=== PATIENT | female | born 1945 | race Two or more races ===

== ENCOUNTER 2021-07-18 16:04 | Outpatient (REF) | payer MEDICARE, MEDICAID, SELFPAY | END 2021-07-18 16:05 | disposition home or self-care (01) | LOC: HO.SCI 16:04 | PROVIDERS: Visit Provider Nurse Practitioner Primary Care | DX: Z13.89 Encounter for screening for other disorder (principal) ==

== ENCOUNTER 2021-08-17 08:38 | Outpatient (REF) | payer MEDICARE, MEDICAID, SELFPAY ==
--- NOTE | ~2021-08-17 | MM_ITS ---
EXAMINATION: BONE DENSITOMETRY CLINICAL INDICATION: Osteoporosis. COMPARISON: This is the patient's baseline examination. TECHNIQUE: Using a Femasys DXA System (software version: 13.1) manufactured by [employer], dual-energy x-ray absorptiometry was performed of the lumbar spine and left hip. The images are of good technical quality. Summary results are attached. FINDINGS: AP SPINE L1-L4 (excluding L3): The data of L1-L4 has been changed to exclude the L3 vertebral body, because degenerative sclerosis at this level may cause overestimation of lumbar spine density. BMD 0.958 g/cm2, Z-score 0.0, T-score -1.8, osteopenia. LEFT FEMUR, NECK: BMD 0.679 g/cm2, Z-score -0.6, T-score -2.6, osteoporosis. LEFT FEMUR, TOTAL: BMD 0.664 g/cm2, Z-score -0.9, T-score -2.7, osteoporosis. IDENTIFIED RISK FACTORS: Height loss, history of fracture (adult), menopause. HISTORY OF FRACTURE: Hip. MEDICATIONS: Multivitamin. MM/XR DEXA axial skeleton IMPRESSION: 1. DIAGNOSIS: Severe osteoporosis based on the lowest T-score value of -2.7 in the total femur and fracture history applying World Health Organization criteria. 2. 10-YEAR FRACTURE RISK PREDICTION, FRAX: Major osteoporotic fracture (clinical spine, forearm, hip or shoulder) 16.9%. Hip fracture 5.3%. 3. Treatment Recommendations: NOF guidelines recommend consideration for treatment in postmenopausal women and men age 50 and older presenting with the following: -A hip or vertebral (clinical or morphometric) fracture. -T-score less than or equal to -2.5 at the femoral neck or spine after appropriate evaluation to exclude secondary causes. -Low bone mass at the hip or spine and a 10-year fracture probability by FRAX of greater than or equal to 3% for hip fracture or greater than or equal to 20% for major osteoporotic fracture based on the [place] adapted WHO algorithm. 4. Other Recommendations: All treatment decisions require clinical judgment and consideration of individual patient factors, including patient preferences, comorbidities, previous drug use, risk factors not captured in the FRAX model (e.g. frailty, falls, vitamin D deficiency, increased bone turnover, interval significant decline in bone density) and possible under or overestimation of fracture risk by FRAX. Additional medical evaluation for secondary cause of low bone mineral density may be appropriate. FUTURE SCAN RECOMMENDATION: People with diagnosed cases of osteoporosis or at high risk for fracture should have regular bone mineral density tests. For patients eligible for Medicare, routine testing is allowed once every 2 years. The testing frequency can be increased to one year for patients who have rapidly progressing disease, those who are receiving or discontinuing medical therapy to restore bone mass, or have additional risk factors.
== END 2021-08-17 08:39 | disposition home or self-care (01) ==
LOC: HO.MAMMO 08:38
PROVIDERS: PCP Nurse Practitioner Primary Care; Visit Provider Nurse Practitioner Primary Care
DX: Z13.820 Encounter for screening for osteoporosis (principal); M81.0 Age-related osteoporosis without current pathological fracture; Z78.0 Asymptomatic menopausal state; Z87.81 Personal history of (healed) traumatic fracture
CPT/HCPCS: 77080

== ENCOUNTER 2021-09-08 | Outpatient (REF) | payer MEDICARE, MEDICAID, SELFPAY ==
--- NOTE | ~2021-09-08 | CT_ITS ---
EXAMINATION: CT CHEST SCREENING CLINICAL INFORMATION: Smoking history COMPARISON: None. TECHNIQUE: Multidetector volumetric CT imaging of the chest is performed without contrast using low dose technique. Additional 2D coronal and sagittal reformatted images and axial 3D maximum intensity projection (MIP) images are generated on the CT workstation. This CT examination was performed using dose optimization techniques as appropriate, variously including the following: *Automated exposure control *Adjustment of mA and/or kV according to patient size (this includes techniques or standardized protocols for targeted exams where dose is matched to indication/reason for exam; i.e. extremities or head) *Use of iterative reconstruction technique DLP: 221 mGy-cm FINDINGS: LUNGS: There is evidence of emphysema. There is a 3 mm calcified right upper lobe nodule axial D8 series 5. There is a 2 x 5 mm nodular density in the right lower lobe axial image 264 series 5 probably representing scarring or subsegmental atelectasis. There is a 2 mm calcified right middle lobe nodule axial image 342 series 5. There is a 5 mm calcified left lower lobe nodule axial image 386 series 5. There is a 3 mm calcified right lower lobe nodule axial image 411 series 5. There is subsegmental atelectasis seen at the lung bases in both lower lobes. MEDIASTINUM: The thoracic aorta is tortuous. There is coronary artery and aortic calcification. The thoracic aorta is normal in caliber. The heart does not appear enlarged. There is no pericardial effusion. There are no enlarged hilar or mediastinal lymph nodes. The visualized thyroid gland is unremarkable. PLEURA: There is no pleural effusion. No pleural mass or thickening. AXILLA: No lymphadenopathy. UPPER ABDOMEN: Unremarkable OSSEOUS STRUCTURES: There are degenerative changes of the spine. CT/CT lung screening IMPRESSION: Emphysema. Small calcified pulmonary nodules probably representing calcified granulomas. Atherosclerotic disease. ASSESSMENT: Lung-RADS category 2: Benign RECOMMENDATION: Annual low-dose chest CT follow-up recommended.
== END 2021-09-08 00:01 | disposition home or self-care (01) ==
LOC: HO.CT
PROVIDERS: PCP Nurse Practitioner Primary Care; Visit Provider Physician Assistant Medical
DX: Z12.2 Encounter for screening for malignant neoplasm of respiratory organs (principal); Z87.891 Personal history of nicotine dependence
CPT/HCPCS: 71271; G0296

== ENCOUNTER 2025-06-24 08:29 | Outpatient (REF) | payer MEDICARE, MEDICAID, SELFPAY ==
--- OUTSIDE RECORDS SUMMARY | 2025-06-24 08:38 | XMS_ITS | Encounter Summary ---
Author Organization [employer] Address [address] [place] [address] [address] [place] [address] Care Team Providers Care Exchange Clerk Name Role Phone Nathalie Armendariz Primary Care Provider [phone] Reason for Visit * Reason Comments Med Refill Encounter Details Date Type Department Care Team (Late st Contact Info) Description 12/07/2023 Refill [facility] [address] [place] [address] Nathalie Armendariz ANP [address] [place] [phone] Primary insomnia Social History Tobacco Use Types Packs/Day Years Used Date Smoking Tobacco: Never Passive Smoke Exposure: Never Smokeless Tobacco: Never Alcohol Use Standard Drinks/Week Comments Never 0 (1 standard drink = 0.6 oz pur e alcohol) Comments Unknown Sex and Gender Information Value Date Recorded Sex Assigned at Female 09/24/2022 10:26 AM EDT Legal Sex Female 10:26 AM EDT Gender Identity Female 09/24/2022 10:26 AM EDT Sexual Orientation Straight 09/24/2022 10 :26 AM EDT documented as of this encounter Plan of Treatment Upcoming Encounters Date Type Department Care Team (Late st Contact Info) Description 07/05/2025 9:30 AM EDT Clinical Support [address] [phone] 09/02/2025 10:00 AM EDT Office Visit [facility] [address] [place] [phone] Nathalie Armendariz ANP [address] [place] [address] documented as of this encounter Visit Diagnoses Diagnosis Primary insomnia Persistent disorder of initiating or maintaining sleep documented in this encounter Care Teams Exchange Clerk Relationship Specialty Start Date End Date Nathalie Armendariz ANP [address] [place] [address] PCP - General Family Medicine 07/18/21 [employer] 12/24/22 documented as of this encounter
[2025-06-24 11:18] LABS: Hematocrit 40.8 % (37.0-47.0); Hemoglobin 13.2 g/dl (12.0-16.0); Imm Gran Abs Auto 0.04 X10*3/uL (0.00-0.03); Imm Gran Pct Auto 0.8 % (0.0-0.4); Lymphocytes Absolute Auto 1.8 X10*3/uL (1.2-4.9); MANUAL DIFF FLAG SCAN; Mean Corpuscular HGB Conc 32.4 g/dl (31.0-35.0); Mean Corpuscular Hemoglobin 28.9 pg (27.0-33.0); Mean Corpuscular Volume 89.3 fL (80.0-98.0); NRBC Abs Auto 0.000 X10*3/uL (0.0-0.012); NRBC Pct Auto 0.0 /100WBC (0.0-0.2); Platelet Count 258 X10*3/uL (160-400); Red Blood Count 4.57 X10*6/uL (4.20-5.50); SCAN SMEAR FLAG 1; White Blood Count 5.3 X10*3/uL (4.8-10.8)
[2025-06-24 11:30] LABS: Hemoglobin A1C 134.3696 umol/L; Total Hemoglobin (HGBA1C) 3438.6534 umol/L
[2025-06-24 11:32] LABS: Anion Gap 14 (12-20); Blood Urea Nitrogen 13 mg/dL (9-16); Calcium 9.2 mg/dL (8.4-10.2); Carbon Dioxide 23 mmol/L (22-29); Chloride 109 mmol/L (96-108); Estimated Glomerular Filt Rate > 60; Potassium 3.8 mmol/L (3.3-5.1); Sodium 142 mmol/L (135-145)
[2025-06-24 11:57] LABS: Vitamin B12 208 pg/mL (200-900)
== END 2025-06-24 08:30 | disposition home or self-care (01) ==
LOC: HO.HHCL 08:29
PROVIDERS: PCP Nurse Practitioner Primary Care; Visit Provider Nurse Practitioner Primary Care
DX: R63.4 Abnormal weight loss (principal); R73.09 Other abnormal glucose; R63.0 Anorexia; E78.5 Hyperlipidemia, unspecified
CPT/HCPCS: 36415; 80048; 82607; 83036; 84443; 85025

== ENCOUNTER 2025-11-12 10:12 | Outpatient (REF) | payer MEDICARE, MEDICAID, SELFPAY ==
--- NOTE | ~2025-11-12 | MM_ITS ---
EXAMINATION: DXA BONE DENSITY AXIAL HISTORY: osteoporosis, on alendronate TECHNIQUE: [employer] Dual energy absorptiometry (DEXA) of the lumbar spine, total left hip, and femoral neck was performed. COMPARISON: Comparison is made with the prior examination dated 08/17/2021. FINDINGS: The bone mineral density of the lumbar spine is 0.968 g/cm2, corresponding to a T-score of -1.8, and a Z-score of 0.1. This is indicative of osteopenia. This represents a BMD change of -5.4% compared to the prior exam. This is statistically significant. The bone mineral density of the left total hip is 0.632 g/cm2, corresponding to a T-score of -3.0, and a Z-score of -0.9. This is indicative of osteoporosis. This represents a BMD change of -4.8% compared to the prior exam. This is not statistically significant. The bone mineral density of the left femoral neck is 0.821 g/cm2, corresponding to a T-score of -1.6, and a Z-score of 0.7. This is indicative of osteopenia. This represents a BMD change of 20.9% compared to the prior exam. FRACTURE RISK: The FRAX index suggests a ten year probability of major osteoporotic fracture of 12.3%, and of hip fracture 2.8%. MM/XR DEXA axial skeleton IMPRESSION: Based on bone mineral density, and according to World Health Organization (WHO) criteria, the diagnosis is consistent with osteoporosis. Statistically, 68% of repeat scans fall within 1 SD (+/- 0.010 g/cm2 for AP spine L1-L4) and 1 SD (+/- 0.012 g/cm2 for femur total) FRAX is a trademark of the [employer]'s [place] [employer] Met[employer], a World Health Organization (WHO) Collaborating Center. Electronically signed by: Saad Fierro MD 11/12/2025 11:44 AM [facility]
--- OUTSIDE RECORDS SUMMARY | 2025-11-12 11:32 | XMS_ITS | Clinical Summary ---
Author Organization [employer] Address [address] [place] [address] 7[address] [place] [address] Care Team Providers Care Knitter Machine Name Role Phone Nathalie Armendariz OMAR Primary Care Provider [phone] Allergies No known active allergies Medications Diclofenac Sodium 1 % gel APLIQUE AL KYLAH AFECTADA LARA VECES AL D A CUANDO SEA NECESARIO PARA EL DOLOR 2 Active zoster vaccine-recombina nt adjuvanted (Shingrix) 50 MCG/0.5ML vaccine Inject 0.5 mL into the shoulder, thigh, or buttocks. 9 Active Blood Pressure Monitoring (Omron 3 Series BP Monitor) device TAKE BLOOD PRESSURE SEATED IN CHAIR WITH FEET ON FLOOR 2 Active cholecalciferol (Vitamin D-3) 50 MCG (1999 UT) capsule Take 1 capsule by mouth once daily 2 Active melatonin 3 MG tablet TAKE 1 TABLET BY MOUTH 30 TO 60 MINUTES BEFORE BEDTIME 90 tablet 3 3 Active alendronate (Fosamax) 70 MG tablet take 1 tablet once a week with 6 to 8 oz of water 30 min before first food of day. do not lie down for 30 minutes 12 tablet 1 4 Active Aspirin Low Dose 81 MG chewable tablet CHEW 1 TABLET BY MOUTH EVERY DAY 90 tablet 1 4 Active atorvastatin (Lipitor) 40 MG tabletIndications :Dyslipidemia Take 1 tablet (40 mg) by mouth Once per day. 90 tablet 1 5 Active Calcium Carb-Cholecalcife rol (Calcium + Vitamin D3) 600-5 MG-MCG tabletIndications :Osteoporosis without current pathological fracture, unspecified osteoporosis type Take 1 tablet by mouth 2 times daily. TAKE 1 TABLET BY MOUTH TWICE DAILY 180 tablet 3 Active venlafaxine (Effexor) 50 MG tabletIndications :Depressive disorder Take 1 tablet (50 mg) by mouth Once per day. 90 tablet 1 Active cyanocobalamin (Vitamin B-12) 1000 MCG/ML injectionIndicati ons:B12 deficiency 1000mcg IM 2 times per week for 1 week, then once weekly for 4 weeks 6 mL 11/03/2025 12:31 PM EST Active Hospital, Clinic, or Other Facility Administered Medication Ordered Dose Route Frequency Start Date End Date Status cyanocobalamin (Vitamin B-12) injection 1,000 mcgIndications:B12 deficiency 1000 mcg IM Weekly 11/12/2025 12/10/2025 Active cyanocobalamin (Vitamin B-12) injection 1,000 mcgIndications:B12 deficiency 1000 mcg IM Once per day on Saturday11/04/2025 11/05/2025 Ended Active Problems Problem Noted Date Diagnosed Date Memory loss 07/12/2025 Depressive disorder 04/18/2022 Minimal cognitive impairment 04/18/2022 Osteoporosis 07/18/2021 Dyslipidemia 07/18/2021 Encounters Date Type Department Care Team Description 11/05/2025 10:30 AM EST Nurse Only [facility] [address] Gretel Stovall RN B12 deficiency 11/05/2025 Travel 11/05/2025 Telephone [facility] [address] [place] [address] Nathalie Armendariz ANP vna referral 11/04/2025 1:30 PM EST Nurse Only [facility] [address] [place] [address] Cande Adkins, BENSON B12 deficiency 11/04/2025 Telephone [facility] [address] [place] [address] Nathalie Armendariz ANP Error (VOID this visit) 11/04/2025 Telephone [facility] [address] [place] [address] Nathalie Armendariz ANP Medication Question 11/04/2025 Travel 11/01/2025 Telephone [facility] [address] [place] [address] Nathalie Armendariz ANP ER Follow-up 11/01/2025 Patient Outreach [facility] [address] [place] [address] Nathalie Armendariz ANP Transition Of Care (Tcm) (HDF unscheduled ) 10/25/2025 Telephone [facility] [address] [place] [address] Nathalie Armendariz ANP Appointment Request 10/19/2025 Telephone [facility] [address] [place] [address] Nathalie Armendariz ANP Appointment Request 10/08/2025 Telephone [facility] [address] [place] [address] Crystal Alvarez RN Results 10/07/2025 Orders Only [facility] [address] [place] [address] Nathalie Armendariz ANP 09/20/2025 Refill [facility] [address] [place] [address] Nathalie Armendariz ANP Depressive disorder 09/15/2025 Refill [facility] [address] [place] [address] Nathalie Armendariz ANP Dyslipidemia 09/02/2025 Telephone [facility] [address] [place] [address] Nathalie Armendariz ANP No Show 08/31/2025 Telephone [facility] [address] [place] [address] Nathalie Armendariz ANP chart prep from Last 3 Months Immunizations Immunization Administration Dates Next Due Influenza High-dose Quadriva lent Preservative Free 08/29/2021 Influenza Injectable Quadriv alant Preservative Free IIV4 MDCK 08/19/2020 Influenza injectable quadriv alent preservative free 01/05/2020,12/12/2018,10/15/2016,10/06,10/25/2014,08/04/2013,08/21/2012 ,02/22/2011 Influenza, IIV3, injectable 01/05/2020,0 12/12/2018,10/15/2016,10/06,10/25/2014,08/04/2013,08/21/2012 ,02/22/2011 Pneumococcal Conjugate PCV 13 04/09/2016 Pneumococcal Conjugate PCV 20 06/16/2025 Pneumococcal Polysaccharide PPSV23 08/05/2006 Td (adult), unspecified 08/05/2006 Tdap 08/29/2021,04/26/2017 Zoster, Recombinant 06/23/2019 Zoster, live 06/10/2014 Social History Tobacco Use Types Packs/Day Years Used Date Smoking Tobacco: Never Passive Smoke Exposure: Never Smokeless Tobacco: Never Tobacco Cessation:Counseling Given: Not Answered Alcohol Use Standard Drinks/Week Comments Never 0 (1 standard drink = 0.6 oz pur e alcohol) Depression Answer Date Recorded Patient Health Questionnaire-9 Score 0 06/16/2025 Patient Health Questionnaire-9 Score 0 06/16/2025 Last PHQ-9: Questionnaire Data Not on file 0 06/16/2025 Housing Stability Answer Date Recorded What is your housing situation today? I have ryan barbour 06/16/[address] you li ve. Do you have problems with any of the following? None of the above 06/16/2025 Food Insecurity Answer Date Recorded Within the past 12 months, y ou worried that your food would run out before you got money to buy more: Never True 06/16/2025 Within the past 12 months,th e food you bought just didn't last and you didn't have enough money to get more: Never True Transportation Answer Date Recorded In the past 12 months, has l ack of transportation kept you from medical appts, meetings, work or from getting things needed for daily living? No 06/16/2025 Utilities Answer Date Recorded In the past 12 months, has t he electric, gas, oil or water company threatened to shut off services in your home? No 06/16/2025 Depression Answer Date Recorded Patient Health Questionnaire-2 Score 0 06/16/2025 Internet Access Answer Date Recorded Internet Access Q1 Yes 06/16/2025 Internet Access Q2 Not on file 06/16/2025 Comments Unknown Sex and Gender Information Value Date Recorded Sex Assigned at Female 09/24/2022 10:26 AM EDT Legal Sex Female 10:26 AM EDT Gender Identity Female 09/24/2022 10:26 AM EDT Sexual Orientation Straight 09/24/2022 10 :26 AM EDT Last Filed Vital Signs Vital Sign Reading Time Taken Comments Blood Pressure 163/90 06/16/2025 3:26 PM EDT Pulse 67 06/16/2025 3:26 PM EDT Temperature - - Respiratory Rate 16 11/27/2022 10:27 AM EST Oxygen Saturation - - Inhaled Oxygen Concentration - - Weight 57.6 kg (127 lb) 06/16/2025 3:26 PM EDT Height 152.4 cm (5') 11/27/2022 10:27 AM EST Body Mass Index 24.8 11/27/2022 10:27 AM EST Plan of Treatment Upcoming Encounters Date Type Department Care Team (Late st Contact Info) Description 11/15/2025 10:30 AM EST Nurse Only [facility] [address] [place] [address] [phone] 12/09/2025 1:30 PM EST Office Visit [facility] [address] [place] [address] Nathalie Armendariz ANP [address] [place] [address] Health Maintenance Due Date Last Done Comments RSV Patients and Patients Aged 60 years or older (1 - 1-dose 75+ series) 2018 Zoster Vaccines (3 of 3) 08/18/2019 06/23/2019, 05/25 COVID-19 Vaccine ( season) 2025 08/27/2021, 01/30/2021, 01/09/2021 Influenza Vaccine (#1) 2025 , 08/19/2020, 01/05/2020, Additional history exists Alcohol/Substance Use Screening 06/16/2026 06/16/2025 Depression Screening 06/16/2026 06/16/2025, 06/16/20 25 SDOH Screening 06/16/2026 06/16/2025 Tobacco Screening 06/16/2026 06/16/2025 Diabetes: Hemoglobin A1C 06/24/2026 06/24/2025, 11/0 11/2020 DTaP/Tdap/Td Vaccines (3 - Td or Tdap) 08/29/2031 08/29/2021, 04/26/2017, 08/05/2006 Pneumococcal Vaccine: 50+ Years Completed 06/16/2025, 04/09/2016, 08/05/2006 HIB Vaccines Aged Out No longer eligi ble based on patient's age to complete this topic HPV Vaccines Aged Out No longer eligi ble based on patient's age to complete this topic Hepatitis A Vaccines Aged Out No long er eligible based on patient's age to complete this topic Hepatitis B Vaccines Aged Out No long er eligible based on patient's age to complete this topic IPV Vaccines Aged Out No longer eligi ble based on patient's age to complete this topic Meningococcal B Vaccine Aged Out No l onger eligible based on patient's age to complete this topic Meningococcal Vaccine Aged Out No alexander harvinder eligible based on patient's age to complete this topic RSV under 20 months Aged Out No longe r eligible based on patient's age to complete this topic Rotavirus Vaccines Aged Out No longer eligible based on patient's age to complete this topic Procedures Procedure Name Priority Date/Time Associated Diagnosis Comments HEMOGLOBIN A1C Routine 06/24/2025 8:40 AM EDT Elevated hemoglobin A1c from Last 3 Months or Most Recently Relevant to Health Maintenance Results * Hemoglobin A1c (06/24/2025 8:40 AM EDT) Hemoglobin A1c 5.7 <6.0 % [facility] Comment:Hemoglobin A1C Refer ence Range Adults: 4.8 - 6.0 % Non diabetic: < 6.0 % Goal: < 7.0 %Additional Action Suggested: > 8.0 %Note: Hemoglobin A1c results are invalid for patients with abnormal amounts of HbF. Blood transfusions may impact the HbA1c concentration in the patient sample. Estimated Average Glucose 117 mg/dL [facility] Comment:eAG = Estimated ave rage glucose which is %A1C expressed asaverage glucose, using the formula of the M2Y-OztoxpxLfasqoz Glucose study (ADAG), Diabetes Care, Vol.31,#8,Jun. 2007 Blood Venous blood specimen / Unknown 06/24/2025 8:40 AM EDT 06/24/2025 10:54 AM EDT Nathalie [facility] BLOOD ORDERABLES Final Resul t [facility] [address] [place] [address] [phone] from Last 3 Months or Most Recently Relevant to Health Maintenance Insurance [facility] STANDARD MEDICARE Advance Directives Documents on File Type Date Recorded Patient Community Development Director Expl anation Advance Directives and Living Will 06/17/2025 Health Care Proxy 06/16/25 Advance Directives and Living Will 11/27/2022 HEALTH CARE PROXY Power of Input Output Clerk 11/27/2022 HEALTH CAR E PROXY Care Teams Knitter Machine Relationship Specialty Start Date End Date Nathalie Armendariz ANP [address] [place] [phone] PCP - General Family Medicine 07/18/21 [employer] 12/24/22
--- OUTSIDE RECORDS SUMMARY | 2025-11-12 11:32 | XMS_ITS | Encounter Summary ---
Author Organization [employer] Address [address] [facility] 7t [place] [address] Care Team Providers Care Administrative Support Assoc Name Role Phone Nathalie Armendariz Primary Care Provider [phone] Reason for Visit * Reason Comments Med Refill Encounter Details Date Type Department Care Team (Late st Contact Info) Description 09/15/2025 Refill [facility] [address] [place], [place] [phone] Nathalie Armendariz ANP [address] [place], [place] [phone] Dyslipidemia Social History Tobacco Use Types Packs/Day Years [...] Upcoming Encounters Date Type Department Care Team ([facility] st Contact Info) Description 11/15/2025 10:30 AM EST Nurse Only [address] [address] 12/09/2025 1:30 PM EST Office Visit [address] [address] Nathalie Armendariz ANP [address] [place] [phone] documented as of this encounter Visit Diagnoses Diagnosis Dyslipidemia Other and unspecified hyperlipidemia documented in this encounter Additional Health Concerns Assessment Noted Time PHQ-9 Depression Total Score: 0 06/16/20 25 3:28 PM EDT documented as of this encounter Care Teams Administrative Support Assoc Relationship Specialty Start Date End Date Nathalie Armendariz ANP [address] [place] [phone] PCP - General Family Medicine 07/18/21 [employer] 12/24/22 documented as of this encounter
--- OUTSIDE RECORDS SUMMARY | 2025-11-12 11:32 | XMS_ITS | Encounter Summary ---
Author Organization [employer] Address [address] [place] [address] Care Team Providers Care Mobile Security Architect Name Role Phone Nathalie Armendariz Primary Care Provider [phone] Reason for Visit * Reason Comments Med Refill Encounter Details Date Type Department Care Team (Late st Contact Info) Description 12/07/2023 Refill [facility] [address] [place] [phone] Nathalie Armendariz ANP [address] [place] [phone] Primary insomnia Social History Tobacco Use Types [...] Description 11/15/2025 10:30 AM EST Nurse Only [address] [phone] 12/09/2025 1:30 PM EST Office Visit [address] [address] Nathalie Armendariz ANP [address] [place] [phone] documented as of this encounter Visit Diagnoses Diagnosis Primary insomnia Persistent disorder of initiating or maintaining sleep documented in this encounter Care Teams Mobile Security Architect Relationship Specialty Start Date End Date Nathalie Armendariz ANP [address] [place] [address] PCP - General Family Medicine 07/18/21 [employer] 12/24/22 documented as of this encounter
--- OUTSIDE RECORDS SUMMARY | 2025-11-12 11:32 | XMS_ITS | Encounter Summary ---
Author Organization [employer] Address [address] [facility] [address]t [place] [address] Care Team Providers Care Track Greaser Name Role Phone Nathalie Armendariz Primary Care Provider [phone] Reason for Visit * Reason Comments Med Refill Encounter Details Date Type Department Care Team (Late st Contact Info) Description 09/20/2025 Refill [facility] [address] [place], [place] [phone] Nathalie Armendariz ANP [address] [place], [place] [phone] Depressive disorder Social History Tobacco Use Types Packs/Day Years [...] Description 11/15/2025 10:30 AM EST Nurse Only [address] [address] 12/09/2025 1:30 PM EST Office Visit [address] [address] Nathalie Armendariz ANP [address] [place] [phone] documented as of this encounter Visit Diagnoses Diagnosis Depressive disorder Depressive disorder, not elsewhere classified documented in this encounter Additional Health Concerns Assessment Noted Time PHQ-9 Depression Total Score: 0 06/16/20 25 3:28 PM EDT documented as of this encounter Care Teams Track Greaser Relationship Specialty Start Date End Date Nathalie Armendariz ANP [address] [place] [phone] PCP - General Family Medicine 07/18/21 [employer] 12/24/22 documented as of this encounter
--- OUTSIDE RECORDS SUMMARY | 2025-11-12 11:32 | XMS_ITS | Encounter Summary ---
Author Organization [employer] Address [address] [place] [address] [address] [place] [address] Care Team Providers Care Ethnic Studies Professor Name Role Phone Nathalie Armendariz Primary Care Provider [phone] Encounter Details Date Type Department Care Team (Late st Contact Info) Description 05/29/[address] [phone] Nathalie Armendariz ANP [address] [place] [address] [phone] Social History Tobacco Use Types Packs/Day Years [...] Description 11/15/2025 10:30 AM EST Nurse Only [address] [phone] 12/09/2025 1:30 PM EST Office Visit [address] [phone] Nathalie Armendariz ANP [address] [place] [address] [phone] documented as of this encounter Visit Diagnoses Not on filedocumented in this encounter Care Teams Ethnic Studies Professor Relationship Specialty Start Date End Date Nathalie Armendariz ANP [address] [place] [address] PCP - General Family Medicine 07/18/21 [employer] 12/24/22 documented as of this encounter
--- OUTSIDE RECORDS SUMMARY | 2025-11-12 11:32 | XMS_ITS | Encounter Summary ---
Author Organization [employer] Address [address] [facility] [address] [place] [address] Care Team Providers Care Senior Net Programmer Name Role Phone Nathalie Armendariz Primary Care Provider [phone] Encounter Details Date Type Department Care Team (Late Contact Info) Description 10/29/2022 Orders Only [facility] MED & PEDS [address] [place], [place] [phone] Nathalie Armendariz ANP [address] [place] [address] Chronic depression (Primary Dx); MCI (mild cognitive impairment) Social History Tobacco Use Types Packs/Day Years Used Date Smoking Tobacco: Never Assessed Comments Unknown Sex and Gender Information Value Date Recorded Sex Assigned at Female 09/24/2022 10:26 AM EDT Legal Sex Female 10:26 AM EDT Gender Identity Female 09/24/2022 10:26 AM EDT Sexual Orientation Straight 09/24/2022 10 :26 AM EDT documented as of this encounter Plan of Treatment Upcoming Encounters Date Type Department Care Team (Late Contact Info) Description 11/15/2025 10:30 AM EST Nurse Only [facility] MEDICINE [address] [place] [address] [phone] 12/09/2025 1:30 PM EST Office Visit [address] [address] Nathalie Armendariz, ANP [address] [place] [address] documented as of this encounter Visit Diagnoses Diagnosis Chronic depression- Primary MCI (mild cognitive impairment) Mild cognitive impairment, so stated documented in this encounter Care Teams Senior Net Programmer Relationship Specialty Start Date End Date Nathalie Armendariz ANP [address] [place] [address] PCP - General Family Medicine 07/18/21 [employer] 12/24/22 documented as of this encounter
--- OUTSIDE RECORDS SUMMARY | 2025-11-12 11:32 | XMS_ITS | Encounter Summary ---
Author Organization [employer] Address [address] [facility] [address] [place] [address] Care Team Providers Care Utilization Management Rn Name Role Phone Nathalie Armendariz Primary Care Provider [phone] Reason for Visit * Reason Onset Date Comments vna referral 11/05/2025 Encounter Details Date Type Department Care Team ([facility] st Contact Info) Description 11/05/2025 Telephone [facility] MEDICINE [address] [place], [place] [phone] Nathalie Armendariz ANP [address] [place], [place] [phone] vna referral Social History Tobacco Use Types Packs/Day Years [...] AM EDT documented as of this encounter Miscellaneous Notes * Telephone Encounter - Cande Adkins RN - 11/09/2025 4:33 PM EST Pending review by [facility]. * Telephone Encounter - Cande Adkins RN - 11/05/2025 9:13 AM EST Generated VNA referral and placed on PCP desk for signature. * Telephone Encounter - Cande Adkins RN - 11/05/2025 9:08 AM EST ----- Message from Nurse Cande Goodwin sent at 11/04/2025 4:35 PM EST ----- ----- Message ----- From: OMAR Geren Sent: 11/04/2025 3:51 PM EST To: Cande Adkins RN Yes! VNA would be great ----- Message ----- From: Cande Adkins RN Sent: 11/04/2025 2:06 PM EST To: OMAR Green Pt's daughter reports pt not taking medications consistently due to forgetfulness and losing pills.They report previously having [facility] for [facility] and would like assistance with medication administration again. Thoughts on new VNA referral? I made a note to ask [facility] tomorrow. documented in this encounter Plan of Treatment Upcoming Encounters Date Type Department Care Team (Late st Contact Info) Description 11/15/2025 10:30 AM EST Nurse Only [address] [id number] 12/09/2025 1:30 PM EST Office Visit [address] [address] Nathalie Armendariz ANP [address] [place] [phone] documented as of this encounter Visit Diagnoses Not on filedocumented in this encounter Additional Health Concerns Assessment Noted Time PHQ-9 Depression Total Score: 0 06/16/20 25 3:28 PM EDT documented as of this encounter Care Teams Utilization Management Rn Relationship Specialty Start Date End Date Nathalie Armendariz ANP [address] [place] [phone] PCP - General Family Medicine 07/18/21 [employer] 12/24/22 documented as of this encounter
--- OUTSIDE RECORDS SUMMARY | 2025-11-12 11:32 | XMS_ITS | Encounter Summary ---
Author Organization [employer] Address [address] [place] [address] [address] [place] [address] Care Team Providers Care Central Service Technician Name Role Phone Nathalie Armendariz Primary Care Provider [phone] Encounter Details Date Type Department Care Team (Late st Contact Info) Description 05/29/[address] [phone] Nathalie Armendariz ANP [address] [place] [address] [phone] Social History Tobacco Use Types Packs/Day Years [...] Description 11/15/2025 10:30 AM EST Nurse Only [address] [phone] 12/09/2025 1:30 PM EST Office Visit [address] [phone] Nathalie Armendariz ANP [address] [place] [address] [phone] documented as of this encounter Visit Diagnoses Not on filedocumented in this encounter Care Teams Central Service Technician Relationship Specialty Start Date End Date Nathalie Armendariz ANP [address] [place] [address] PCP - General Family Medicine 07/18/21 [employer] 12/24/22 documented as of this encounter"
== END 2025-11-12 10:13 | disposition home or self-care (01) ==
LOC: HO.MAMMO 10:12
PROVIDERS: PCP Nurse Practitioner Primary Care; Visit Provider Nurse Practitioner Primary Care
DX: M81.0 Age-related osteoporosis without current pathological fracture (principal)
CPT/HCPCS: 77080

== ENCOUNTER → 2025-11-12 10:30 | Outpatient (BNV) | payer MEDICARE, MEDICAID, SELFPAY | PROVIDERS: PCP Nurse Practitioner Primary Care; Visit Provider Radiology Diagnostic Radiology | DX: E28.39 Other primary ovarian failure (principal) | CPT/HCPCS: 77080 ==